=== PATIENT | male | born 2000 | race Hispanic/Latino ===

== ENCOUNTER 2023-11-10 05:37 | Day surgery (SDC) | payer BC ==
[2023-11-10] VITALS (11 sets, daily range): BP systolic 85–121; BP diastolic 42–71; PULSE 57–74; RESP 12–16
[~2023-11-10] VITALS: Ht 162.6 cm; Wt 54.0 kg
[2023-11-10] MEDS ORDERED: 0.9%NACL 1000ML 1,000 ML IV ONE (06:04)
[2023-11-10] MEDS ORDERED: SUCR1TAB2 PO (06:37)
[2023-11-10] MEDS ORDERED: OMEP40CA21 PO (06:37)
[2023-11-10] MEDS ORDERED: PROPOFOL 10 MG/ML 20ML VIAL IV ONE (09:02)
== END 2023-11-10 10:35 | disposition home or self-care (01) ==
LOC: DAH 05:37 → ENDO 05:37
PROVIDERS: ATTEND Internal Medicine Gastroenterology
DX: R10.11 Right upper quadrant pain (principal); R12 Heartburn; R19.7 Diarrhea, unspecified; K29.70 Gastritis, unspecified, without bleeding; Z90.49 Acquired absence of other specified parts of digestive tract
CPT/HCPCS: 43239; J7030 ×2; J2704; A4620; A4215 ×2; A4223; A7002; A4222; A4221; A4663; A4606; J3490